=== PATIENT | female | born 1965 | race Caucasian/White ===

== ENCOUNTER 2018-09-08 22:55 | Emergency (ER) | payer OTHER ==
[~2018-09-08] VITALS: Ht 160 cm; Wt 111.1 kg
[2018-09-08 22:59] VITALS: BP 131/80
--- NOTE | 2018-09-08 23:02 | NUR ---
TO LOBBY A/W BED AMBULATORY
--- NOTE | 2018-09-08 23:56 | NUR ---
PT AMBULATED TO BED 08.
--- NOTE | 2018-09-09 00:20 | NUR ---
52/F PRESENTS WITH DAUGHTER, C/O BL FLANK PAIN, X3 DAYS. REPORTS N/V AND DECREASED APPETITE. REPORTS SLIGHT COUGH, REPORTS PINK/BLOOD TINGED SPUTUM. REPORTS SUBJECTIVE FEVER, AFEBRILE AT THIS TIME. PT ALSO REPORTS EPISODES OF DIZZINESS. PT WAS DISCHARGED 2 WEEKS AGO FOR PNA, WAS ADMITTED FOR 2 WEEKS. REPORTS TAKING ABX WITH IMPROVEMENT BUT SYMPTOMS SHORTLY WENT BACK. AOX4, SKIN NORMAL WARM AND DRY, RR EVEN AND UNLABORED. LUNG SOUNDS CLEAR BL. BS ACTIVE X4, ABD SOFT ROUND LARGE NONTENDER. BLE EDEMA +2 PITTING, REPORTS PREVIOUS FX ON R FOOT. HX HTN, DM, HLD, THYROID SURGERY/HYPOTHYROID, GLAUCOMA SURGERY
--- NOTE | 2018-09-09 01:35 | NUR ---
DR RAI AT BEDSIDE
[2018-09-09] MEDS ORDERED: KETOROLAC 60 MG/2 ML VIAL IM ONE (01:40)
[2018-09-09 02:15] VITALS: BP 105/64
--- NOTE | 2018-09-09 02:15 | NUR ---
Patient discharged with v/s stable. Written and verbal after care instructions given and explained. Patient alert, oriented and verbalized understanding of instructions. Ambulatory with steady gait. All questions addressed prior to discharge. ID band removed. Patient advised to follow up with PMD. Rx of CIPRO, MOTRIN given. Patient educated on indication of medication including possible reaction and side effects. Opportunity to ask questions provided and answered.
== END 2018-09-09 02:15 | disposition home or self-care (01) ==
LOC: MED 22:55
DX: N12 Tubulo-interstitial nephritis, not specified as acute or chronic (principal); E11.9 Type 2 diabetes mellitus without complications; I10 Essential (primary) hypertension; E03.9 Hypothyroidism, unspecified; Z88.5 Allergy status to narcotic agent; Z98.890 Other specified postprocedural states
CPT/HCPCS: 81002; 81025; 87086; 96372; 99283; J1885